=== PATIENT | female | born 1970 | race Caucasian/White ===

== ENCOUNTER 2019-01-23 15:56 | Emergency (ER) | payer OTHER ==
[2019-01-23 16:08] VITALS: BP 138/89; PULSE 96; TEMP 98.4; BMI 31.8
[2019-01-23] MEDS ORDERED: DIPHTH,PERTUSS(ACELL),TET 0.5 ML DISP.SYRIN IM ONE ×2 (16:13→16:27)
[2019-01-23] MEDS ORDERED: SILVER SULFADIAZINE 1% TOP CREAM 50 GM JAR TP ONE ×2 (16:13→16:27)
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
[2019-01-23] MEDS ORDERED: IBUPROFEN 600 MG TABLET (FP) PO ONE (16:40)
== END 2019-01-23 16:30 | disposition home or self-care (01) ==
LOC: JERFT 15:56
PROC: 2W2LX4Z Dressing of Right Lower Extremity using Bandage (ICD-10-PCS; principal; 2019-01-23)
PROC: 3E0234Z Introduction of Serum, Toxoid and Vaccine into Muscle, Percutaneous Approach (ICD-10-PCS; 2019-01-23)
DX: T24.211A Burn of second degree of right thigh, initial encounter (principal); T25.191A Burn of first degree of multiple sites of right ankle and foot, initial encounter; T31.0 Burns involving less than 10% of body surface; X19.XXXA Contact with other heat and hot substances, initial encounter; Y93.G3 Activity, cooking and baking; Y92.9 Unspecified place or not applicable
CPT/HCPCS: 90715; 99281-25